=== PATIENT | female | born 1995 | race African-American/Black ===

== ENCOUNTER 2017-02-19 15:38 | Emergency (ER) | payer OTHER ==
[~2017-02-19] VITALS: Ht 172.7 cm; Wt 74.4 kg
[2017-02-19 15:45] VITALS: TEMP 37.1; Ht 172.7 cm; Wt 74.4 kg
[2017-02-19] MEDS ORDERED: IBUP-1050 PO (15:59)
[2017-02-19] MEDS ORDERED: ETON1IMP2 (15:59)
[2017-02-19] MEDS ORDERED: ACET-1256 PO (15:59)
--- NOTE | 2017-02-19 16:46 | EMERGENCY ROOM VISIT NOTE ---
ED Visit Note First contact with patient: 15:58 CHIEF COMPLAINT: Sore throat HISTORY OF PRESENT ILLNESS: This 21-year-old -[place] female patient reports increasing pain in the throat over the last 3 days, gradual in onset. It is worse with swallowing. No chills, or sweats. She has had a low-grade fever that responds to Motrin and Tylenol. No rashes. Denies any posterior neck pain or stiffness. No difficulty breathing or shortness of breath. No ear pain, cough, or abdominal pain. Symptoms came on gradually. There has been no chest pain, no nausea or vomiting. No known ill contacts. Pain is 4/ 10. She have tried Motrin and Tylenol for treatment. REVIEW OF SYSTEMS: HEENT: No dizziness, visual problems, hearing loss, or tinnitus. no oral lesions are present. LYMPH: No adenopathy. PULMONARY: No cough, shortness of breath, sputum production or hemoptysis. CARDIOVASCULAR: No chest pain, palpitations, shortness of breath or peripheral edema. GASTROINTESTINAL: No diarrhea, constipation, nausea, vomiting, or abdominal pain. GENITOURINARY: No dysuria, frequency, urgency or nocturia. NEUROLOGIC: No weakness, muscle tenderness, epilepsy or history of neurological problems. MUSCULOSKELETAL: No history of joint tenderness/swelling. No history of arthritis or arthralgias. SKIN: No rashes or lesions. PSYCHIATRIC: No history of depression or mental illness. ENDOCRINE: No history of diabetes, thyroid disorders, or abnormal hair growth. Supplemental sheet was reviewed and signed. Previous surgeries: None Medical history: Benign Current medications: Tylenol, Motrin, OCP Allergies: Dairy, nuts, shellfish, strawberries, oranges Family History: Unremarkable. Parents are living. SOCIAL HISTORY: Employed. [employer] student. No tobacco use, occasional EtOH use. Single. PHYSICAL EXAM: Vital Signs: Afebrile. Reviewed and filed in patient's chart MENTAL STATUS: Alert and oriented. Skin:Warm and dry with good turgor. No rashes or lesions. No ecchymosis or erythema. The patient is not diaphoretic. No abrasions. HEENT: Normocephalic atraumatic. Eyes PERRLA, EOMI. No conjunctiva or scleral injection. Ears TMs intact bilaterally with good light reflexes. No erythema or bulging. No hemotympanum. Canals are patent. Nares patent bilaterally without turbinate enlargement. Clear nasal drainage. No epistaxis. Oropharynx with erythema but no exudate. Uvula midline , oral mucosa moist. No lesions present. Lymphatics are palpated with anterior chain enlargement and tenderness. No posterior chain enlargement or tenderness. Heart: Heart RRR. No GR. 3/6 systolic ejection murmur noted. Peripheral pulses are 2+. Lungs: Lungs are clear to auscultation. No crackles , rhonchi, or wheezing. Good air movement. The patient is able to take a deep breath. Data: Rapid strep obtained today was negative. Back up cultures were sent. DIAGNOSIS: Acute viral pharyngitis. DISCHARGE INSTRUCTIONS & TREATMENT: Patient was educated regarding today's findings. Conservative care measures were discussed. They will be called if the back up cultures return positive. Maintain hydration. Tylenol and ibuprofen every 6 hours as needed for discomfort. Read the pharyngitis (sore throat) instruction sheet. Follow-up with her PCP or [facility] as needed. She was reassured that I do not suspect mononucleosis at this point. Current/Historical Medications Scheduled PRN Acetaminophen (Tylenol), 500 MG PO UD PRN for Pain Ibuprofen (Advil), 200-600 MG PO Q4H PRN for Pain Miscellaneous Medications Etonogestrel (Nexplanon) Allergies Coded Allergies: Dairy (Unverified Allergy, Unknown, UNKNOWN, 02/19/17) NUTS (Unverified Allergy, Unknown, UNKNOWN, 02/19/17) [place] (Unverified Allergy, Unknown, UNKNOWN, 02/19/17) Shellfish (Unverified Allergy, Unknown, UNKNOWN, 02/19/17) [place] (Unverified Allergy, Unknown, UNKNOWN, 02/19/17) Vital Signs Date Time Temp Pulse Resp B/P (MAP) Pulse Ox O2 Delivery O2 Flow Rate FiO2 02/19/17 16:50 79 18 121/64 99 02/19/17 15:47 99 Room Air 02/19/17 15:45 37.1 77 18 125/80 100 Room Air Departure Information Referrals No Doctor, Assigned (PCP) Patient Instructions [facility]
[2017-02-19 16:50] VITALS: BP 121/64; PULSE 79; O2SAT 99
== END 2017-02-19 16:50 | disposition home or self-care (01) ==
LOC: C.EDB 15:40 → C.EDD 16:50
DX: J02.9 Acute pharyngitis, unspecified (principal); Z91.011 Allergy to milk products; Z91.018 Allergy to other foods